=== PATIENT | male | born 1980 | race Hispanic/Latino ===

== ENCOUNTER 2021-10-03 21:02 | Emergency (ER) | payer OTHER, MEDICAID, SELFPAY ==
[2021-10-03 21:02] VITALS: BMI 20.7
[2021-10-03 21:03] VITALS: BP 138/89; PULSE 120; RESP 16; O2SAT 98
--- NOTE | 2021-10-03 21:12 | PC.NURSE ---
pt cooperative with care, arrives to ed with arms outstretched with fingers stiff but able to bend arms when needed, responds so some questions with appropriate answers speaks in a whisper voice when asked why he called the ambulance he only states suicidal asked if he had a plan he nodded and stated I'm going to bleed to when asked how he stated anyway I can, pt confused to where he is at
--- NOTE | 2021-10-03 21:18 | ED_ITS ---
HPI - Psych <Buddy Lindquist DO - Last Filed: 10/05/21 06:00> General Chief Complaint: Psychiatric Symptoms Stated Complaint: SI, disoriented, homeless Time Seen by Provider: 10/03/21 21:13 Source: patient and EMS Mode of arrival: EMS History of Present Illness HPI Narrative: A 41-year-old male. He is somewhat unable to provide much of any HPI. EMS stated that they were called because the patient was disoriented around a local business. Patient would not/could not provide any information. He told the EMS crew that he was suicidal. He told me that he has been suicidal for ?sometime ?when asked things got worried today he would not answer. When asked if he was seeing or hearing things he would not answer. Patient could not give a specific as to a plan as to how he would hurt himself. He denied alcohol or drug use. He stated that he did try to hurt himself this evening but once again could not provide any specifics about how. Patient was whispering during the entire interview. Patient disheveled. No signs of trauma. Related Data Home Medications Medication Instructions Recorded Confirmed Unobtainable 10/03/21 10/03/21 Allergies Allergy/AdvReac Type Severity Reaction Status Date / Time No Allergy Information Allergy Verified 10/03/21 21:16 Available Review of Systems <DO Fatuma Espinosa Last Filed: 10/05/21 06:00> Review of Systems Narrative: Very limited given his participation in the exam. Any information provided from the patient was given in the HPI and below. Cardiovascular Comments: Denies chest pain Psychiatric Psychiatric: Reports system reviewed and no additional complaints, except as documented and Reports as per HPI Patient History <Buddy Lindquist DO - Last Filed: 10/05/21 06:00> Medical History Unable to acculturate Social History marital status: unknown housing: homeless Substance Use Type: unknown Exam <DO Fatuma Espinosa Last Filed: 10/05/21 06:00> Initial Vital Signs Initial Vital Signs: Vital Signs Pulse Rate 120 H 10/03/21 21:03 Respiratory Rate 16 10/03/21 21:03 Blood Pressure 138/89 10/03/21 21:03 Pulse Oximetry 98 10/03/21 21:03 Const General: disheveled HENMT Head: normal to inspection and normocephalic Resp Effort & Inspection: normal respiratory effort Auscultation: clear to auscultation bilaterally Cardio Rate: regular rate Rhythm: regular rhythm GI Inspection: non-distended Palpation: soft Skin General: no rashes or lesions noted Neuro Gait: normal gait Other: Confused about where he is Would not answer what his name is Would not answer what year it is Does move all 4 extremities Extrem General: normal to inspection and no pedal edema Psych Other: Patient is disheveled Patient does not know where he is. Does not know how he got here. He does endorse being suicidal but would not specifically give a plan Patient is cooperative. <Rivka Pierre MD - Last Filed: 10/20/21 00:29> Initial Vital Signs Initial Vital Signs: Vital Signs Pulse Rate 120 H 10/03/21 21:03 Respiratory Rate 16 10/03/21 21:03 Blood Pressure 138/89 10/03/21 21:03 Pulse Oximetry 98 10/03/21 21:03 Scores <Buddy Lindquist DO - Last Filed: 10/05/21 06:00> GCS [place] coma scale eye opening: Spontaneous [place] coma scale verbal response: Confused [place] coma scale motor response: Obey commands [place] coma scale total score: 14 <Rivka Pierre MD - Last Filed: 10/20/21 00:29> GCS [place] coma scale total score: 14 Course <Buddy Lindquist DO - Last Filed: 10/05/21 06:00> Orders Ordered: Discontinued Medications Olanzapine (Olanzapine Odt 10 Mg Tab) 10 mg PO NOW ONE Stop: 10/04/21 12:09 Last Admin: 10/04/21 12:24 Dose: 10 mg Documented by: SERAFIN Olanzapine (Olanzapine Odt 10 Mg Tab) 10 mg PO BID [facility] Last Admin: 10/05/21 08:06 Dose: 10 mg Documented by: Admin: 10/04/21 20:38 Dose: 10 mg Documented by: SERAFIN Vital Signs Vital signs: Vital Signs - 8 hr 10/04/21 12:00 Temperature 98.2 F Pulse Rate 111 H Respiratory Rate 22 Blood Pressure 136/78 Pulse Oximetry 99 <Rivka Pierre MD - Last Filed: 10/20/21 00:29> Orders Ordered: Discontinued Medications Olanzapine (Olanzapine Odt 10 Mg Tab) 10 mg PO NOW ONE Stop: 10/04/21 12:09 Last Admin: 10/04/21 12:24 Dose: 10 mg Documented by: SERAFIN Olanzapine (Olanzapine Odt 10 Mg Tab) 10 mg PO BID [facility] Last Admin: 10/05/21 08:06 Dose: 10 mg Documented by: Admin: 10/04/21 20:38 Dose: 10 mg Documented by: SERAFIN Vital Signs Vital signs: Vital Signs - 8 hr 10/04/21 12:00 Temperature 98.2 F Pulse Rate 111 H Respiratory Rate 22 Blood Pressure 136/78 Pulse Oximetry 99 MDM - Psych <Buddy Lindquist DO - Last Filed: 10/05/21 06:00> Lab Data Result diagrams: 10/03/21 21:45 10/03/21 21:45 Labs: Lab Results 10/03/21 10/03/21 10/03/21 Range/Units 21:45 21:45 21:45 WBC 7.6 (4.5-11.0) X10^3/uL RBC 4.45 L (4.5-5.9) X10^6/uL Hgb 13.7 (13.5-17.5) g/dL Hct 38.7 L (41-53) % MCV 87.0 (80-100) fL MCH 30.7 (26-34) PG MCHC 35.3 (30-36) % RDW 13.7 (11.6-14.8) % Plt Count 317 (150-400) X10^3/uL Neut % (Auto) 73.9 (50-75) % Lymph % (Auto) 14.0 L (25-40) % [place] % (Auto) 11.5 (3-14) % Eos % (Auto) 0.1 L (2-4) % Baso % (Auto) 0.5 (0-2) % Neut # (Auto) 5600 (2590-8136) /uL Lymph # (Auto) 1100 (8273-1541) /uL [place] # (Auto) 900 (0-900) /uL Eos # (Auto) 0 (0-450) /uL Baso # (Auto) 0 (0-100) /uL Sodium 140 (137-145) mmol/L Potassium 3.3 L (3.4-5.1) mmol/L Chloride 102 (98-107) mmol/L Carbon Dioxide 30 (22-32) mmol/L BUN 11 (9-20) mg/dL Creatinine 0.87 (0.66-1.25) mg/dL Estimated GFR > 60 (>60) mL/min BUN/Creatinine Ratio 12.6 (6-22) Glucose 110 H (70-100) mg/dL Calcium 9.6 (8.4-10.2) mg/dL Total Bilirubin 0.6 (0.2-1.3) mg/dL AST 32 (17-59) IU/L ALT 23 (<50) IU/L Alkaline Phosphatase 42 (38-126) U/L Total Protein 7.9 (6.3-8.2) g/dL Albumin 4.7 (3.5-5.0) g/dL Globulin 3.2 (1.7-4.1) g/dL Albumin/Globulin Ratio 1.5 (1.0-2.8) TSH 0.482 (0.47-4.68) uIU/mL Urine RBC (0-5/HPF) Urine WBC (0-5/HPF) Urine Bacteria (None) Urine Sperm Ur Culture Indicated? Salicylates (<20) mg/dL U Opiates 300ng/mL cut (Negative) Ur Oxycodone Screen (Negative) Urine Methadone Screen (Negative) Acetaminophen (10-30) ug/mL Ur Barbiturates Screen (Negative) U Tricyclic Antidepress (Negative) Ur Phencyclidine Scrn (Negative) Ur Amphetamines Screen (Negative) U Methamphetamines Scrn (Negative) Ur MDMA Scrn (Ecstasy) (Negative) U Benzodiazepines Scrn (Negative) Urine Cocaine Screen (Negative) U Marijuana (THC) Screen (Negative) Ethyl Alcohol < 10 ( - 10) mg/dL SARS-CoV-2 (PCR) (Negative) 10/03/21 10/04/21 10/04/21 Range/Units 21:45 04:00 04:00 WBC (4.5-11.0) X10^3/uL RBC (4.5-5.9) X10^6/uL Hgb (13.5-17.5) g/dL Hct (41-53) % MCV (80-100) fL MCH (26-34) PG MCHC (30-36) % RDW (11.6-14.8) % Plt Count (150-400) X10^3/uL Neut % (Auto) (50-75) % Lymph % (Auto) (25-40) % [place] % (Auto) (3-14) % Eos % (Auto) (2-4) % Baso % (Auto) (0-2) % Neut # (Auto) (3725-0707) /uL Lymph # (Auto) (2217-6228) /uL [place] # (Auto) (0-900) /uL Eos # (Auto) (0-450) /uL Baso # (Auto) (0-100) /uL Sodium (137-145) mmol/L Potassium (3.4-5.1) mmol/L Chloride (98-107) mmol/L Carbon Dioxide (22-32) mmol/L BUN (9-20) mg/dL Creatinine (0.66-1.25) mg/dL Estimated GFR (>60) mL/min BUN/Creatinine Ratio (6-22) Glucose (70-100) mg/dL Calcium (8.4-10.2) mg/dL Total Bilirubin (0.2-1.3) mg/dL AST (17-59) IU/L ALT (<50) IU/L Alkaline Phosphatase (38-126) U/L Total Protein (6.3-8.2) g/dL Albumin (3.5-5.0) g/dL Globulin (1.7-4.1) g/dL Albumin/Globulin Ratio (1.0-2.8) TSH (0.47-4.68) uIU/mL Urine RBC None seen (0-5/HPF) Urine WBC None seen (0-5/HPF) Urine Bacteria None seen (None) Urine Sperm Present Ur Culture Indicated? Cult not indicated Salicylates < 1.0 (<20) mg/dL U Opiates 300ng/mL cut Negative (Negative) Ur Oxycodone Screen Negative (Negative) Urine Methadone Screen Negative (Negative) Acetaminophen < 10 (10-30) ug/mL Ur Barbiturates Screen Negative (Negative) U Tricyclic Antidepress Negative (Negative) Ur Phencyclidine Scrn Negative (Negative) Ur Amphetamines Screen Positive H (Negative) U Methamphetamines Scrn Positive H (Negative) Ur MDMA Scrn (Ecstasy) Negative (Negative) U Benzodiazepines Scrn Negative (Negative) Urine Cocaine Screen Negative (Negative) U Marijuana (THC) Screen Positive H (Negative) Ethyl Alcohol ( - 10) mg/dL SARS-CoV-2 (PCR) (Negative) 10/04/21 Range/Units 12:30 WBC (4.5-11.0) X10^3/uL RBC (4.5-5.9) X10^6/uL Hgb (13.5-17.5) g/dL Hct (41-53) % MCV (80-100) fL MCH (26-34) PG MCHC (30-36) % RDW (11.6-14.8) % Plt Count (150-400) X10^3/uL Neut % (Auto) (50-75) % Lymph % (Auto) (25-40) % [place] % (Auto) (3-14) % Eos % (Auto) (2-4) % Baso % (Auto) (0-2) % Neut # (Auto) (6600-1299) /uL Lymph # (Auto) (0336-2026) /uL [place] # (Auto) (0-900) /uL Eos # (Auto) (0-450) /uL Baso # (Auto) (0-100) /uL Sodium (137-145) mmol/L Potassium (3.4-5.1) mmol/L Chloride (98-107) mmol/L Carbon Dioxide (22-32) mmol/L BUN (9-20) mg/dL Creatinine (0.66-1.25) mg/dL Estimated GFR (>60) mL/min BUN/Creatinine Ratio (6-22) Glucose (70-100) mg/dL Calcium (8.4-10.2) mg/dL Total Bilirubin (0.2-1.3) mg/dL AST (17-59) IU/L ALT (<50) IU/L Alkaline Phosphatase (38-126) U/L Total Protein (6.3-8.2) g/dL Albumin (3.5-5.0) g/dL Globulin (1.7-4.1) g/dL Albumin/Globulin Ratio (1.0-2.8) TSH (0.47-4.68) uIU/mL Urine RBC (0-5/HPF) Urine WBC (0-5/HPF) Urine Bacteria (None) Urine Sperm Ur Culture Indicated? Salicylates (<20) mg/dL U Opiates 300ng/mL cut (Negative) Ur Oxycodone Screen (Negative) Urine Methadone Screen (Negative) Acetaminophen (10-30) ug/mL Ur Barbiturates Screen (Negative) U Tricyclic Antidepress (Negative) Ur Phencyclidine Scrn (Negative) Ur Amphetamines Screen (Negative) U Methamphetamines Scrn (Negative) Ur MDMA Scrn (Ecstasy) (Negative) U Benzodiazepines Scrn (Negative) Urine Cocaine Screen (Negative) U Marijuana (THC) Screen (Negative) Ethyl Alcohol ( - 10) mg/dL SARS-CoV-2 (PCR) Negative (Negative) Urine Dip Bedside Urine Glucose Negative Bedside Urine Bilirubin - Negative Bedside Urine Ketone - Negative Urine Specific [place] 1.025 Bedside Urine Occult Blood - Negative Bedside Urine pH 6.0 Bedside Urine Protein + 30 Bedside Urine Urobilinogen - Negative Bedside Urine Nitrite - Negative Bedside Urine Leukocytes - Negative Esterase ECG Data Attestation: I personally reviewed and interpreted this ECG as follows: Interpretation: Sinus rhythm Ventricular rate 104 Normal axis Normal QRS Normal QTC No ST T wave changes MDM Narrative Medical decision making narrative: Patient arrived in or worsening suicidal ideation however was unwilling/unable to provide much more information than this. Patient does have methamphetamine in his urine and I suspect that that is contributing to his presenting issues. Patient has been sleeping. Care turned over to Dr. Pierre to follow up and disposition. Social Work consult has been placed. noon: Patient is seen and evaluated after waking up this morning. He remains agitated. He is quite expressive but is not actually verbal. He clearly is asking for help in calming down. He is pacing somewhat he will get up from the bed and then stand facing into a corner. Does not appear to be acutely responding to internal stimuli but it is difficult to fully assess. He is cooperative and redirectable at this time. Review of medical records indicate that he does have a diagnosis of psychosis and 1 point has been on olanzapine 10 mg b.i.d.. Patient was admitted to [facility] on 09/02-09/16 with similar presentation as he has today. Extremely paranoid, urine tox is positive for methamphetamine and opiates. Today methamphetamines only are noted in his urine tox screen. There is a report in notes from [facility] that he had multiple psychiatric admissions in [facility] prior to moving to [place]. With that inpatient stay he was started on Zyprexa twice a day and showed continued improvement. The impression at that time was unspecified psychosis verses metha mphetamine induced psychosis verses schizophrenia. He was instructed to follow- up with outpatient providers. It does not seem that he was able to follow through with that plan. 4:45 patient is medically clear at this time. Care is reviewed with nursing home social worker who has interviewed the patient. At this time I believe DCR involvement is going to be appropriate. I do not think that he is a good cris voluntary admission and I do think that he have acute psychosis that needs to be more completely addressed. 610 talked to DCR. Care is turned over to DR Lexa Lindquist: Wound care of patient. Reviewed prior shift events. Patient remains medically cleared. Was evaluated by DCR with decision to involuntarily detained patient. Placement made by DCR at [facility]. He is able to a rrive later this morning. Patient has been calm and sleeping overnight. Patient is currently stable for transport. <Rivka Pierre MD - Last Filed: 10/20/21 00:29> Lab Data Labs: Lab Results 10/03/21 10/03/21 10/03/21 Range/Units 21:45 21:45 21:45 WBC 7.6 (4.5-11.0) X10^3/uL RBC 4.45 L (4.5-5.9) X10^6/uL Hgb 13.7 (13.5-17.5) g/dL Hct 38.7 L (41-53) % MCV 87.0 (80-100) fL MCH 30.7 (26-34) PG MCHC 35.3 (30-36) % RDW 13.7 (11.6-14.8) % Plt Count 317 (150-400) X10^3/uL Neut % (Auto) 73.9 (50-75) % Lymph % (Auto) 14.0 L (25-40) % [place] % (Auto) 11.5 (3-14) % Eos % (Auto) 0.1 L (2-4) % Baso % (Auto) 0.5 (0-2) % Neut # (Auto) 5600 (3680-6048) /uL Lymph # (Auto) 1100 (8723-1405) /uL [place] # (Auto) 900 (0-900) /uL Eos # (Auto) 0 (0-450) /uL Baso # (Auto) 0 (0-100) /uL Sodium 140 (137-145) mmol/L Potassium 3.3 L (3.4-5.1) mmol/L Chloride 102 (98-107) mmol/L Carbon Dioxide 30 (22-32) mmol/L BUN 11 (9-20) mg/dL Creatinine 0.87 (0.66-1.25) mg/dL Estimated GFR > 60 (>60) mL/min BUN/Creatinine Ratio 12.6 (6-22) Glucose 110 H (70-100) mg/dL Calcium 9.6 (8.4-10.2) mg/dL Total Bilirubin 0.6 (0.2-1.3) mg/dL AST 32 (17-59) IU/L ALT 23 (<50) IU/L Alkaline Phosphatase 42 (38-126) U/L Total Protein 7.9 (6.3-8.2) g/dL Albumin 4.7 (3.5-5.0) g/dL Globulin 3.2 (1.7-4.1) g/dL Albumin/Globulin Ratio 1.5 (1.0-2.8) TSH 0.482 (0.47-4.68) uIU/mL Urine RBC (0-5/HPF) Urine WBC (0-5/HPF) Urine Bacteria (None) Urine Sperm Ur Culture Indicated? Salicylates (<20) mg/dL U Opiates 300ng/mL cut (Negative) Ur Oxycodone Screen (Negative) Urine Methadone Screen (Negative) Acetaminophen (10-30) ug/mL Ur Barbiturates Screen (Negative) U Tricyclic Antidepress (Negative) Ur Phencyclidine Scrn (Negative) Ur Amphetamines Screen (Negative) U Methamphetamines Scrn (Negative) Ur MDMA Scrn (Ecstasy) (Negative) U Benzodiazepines Scrn (Negative) Urine Cocaine Screen (Negative) U Marijuana (THC) Screen (Negative) Ethyl Alcohol < 10 ( - 10) mg/dL SARS-CoV-2 (PCR) (Negative) 10/03/21 10/04/21 10/04/21 Range/Units 21:45 04:00 04:00 WBC (4.5-11.0) X10^3/uL RBC (4.5-5.9) X10^6/uL Hgb (13.5-17.5) g/dL Hct (41-53) % MCV (80-100) fL MCH (26-34) PG MCHC (30-36) % RDW (11.6-14.8) % Plt Count (150-400) X10^3/uL Neut % (Auto) (50-75) % Lymph % (Auto) (25-40) % [place] % (Auto) (3-14) % Eos % (Auto) (2-4) % Baso % (Auto) (0-2) % Neut # (Auto) (8568-5278) /uL Lymph # (Auto) (3805-1443) /uL [place] # (Auto) (0-900) /uL Eos # (Auto) (0-450) /uL Baso # (Auto) (0-100) /uL Sodium (137-145) mmol/L Potassium (3.4-5.1) mmol/L Chloride (98-107) mmol/L Carbon Dioxide (22-32) mmol/L BUN (9-20) mg/dL Creatinine (0.66-1.25) mg/dL Estimated GFR (>60) mL/min BUN/Creatinine Ratio (6-22) Glucose (70-100) mg/dL Calcium (8.4-10.2) mg/dL Total Bilirubin (0.2-1.3) mg/dL AST (17-59) IU/L ALT (<50) IU/L Alkaline Phosphatase (38-126) U/L Total Protein (6.3-8.2) g/dL Albumin (3.5-5.0) g/dL Globulin (1.7-4.1) g/dL Albumin/Globulin Ratio (1.0-2.8) TSH (0.47-4.68) uIU/mL Urine RBC None seen (0-5/HPF) Urine WBC None seen (0-5/HPF) Urine Bacteria None seen (None) Urine Sperm Present Ur Culture Indicated? Cult not indicated Salicylates < 1.0 (<20) mg/dL U Opiates 300ng/mL cut Negative (Negative) Ur Oxycodone Screen Negative (Negative) Urine Methadone Screen Negative (Negative) Acetaminophen < 10 (10-30) ug/mL Ur Barbiturates Screen Negative (Negative) U Tricyclic Antidepress Negative (Negative) Ur Phencyclidine Scrn Negative (Negative) Ur Amphetamines Screen Positive H (Negative) U Methamphetamines Scrn Positive H (Negative) Ur MDMA Scrn (Ecstasy) Negative (Negative) U Benzodiazepines Scrn Negative (Negative) Urine Cocaine Screen Negative (Negative) U Marijuana (THC) Screen Positive H (Negative) Ethyl Alcohol ( - 10) mg/dL SARS-CoV-2 (PCR) (Negative) 10/04/21 Range/Units 12:30 WBC (4.5-11.0) X10^3/uL RBC (4.5-5.9) X10^6/uL Hgb (13.5-17.5) g/dL Hct (41-53) % MCV (80-100) fL MCH (26-34) PG MCHC (30-36) % RDW (11.6-14.8) % Plt Count (150-400) X10^3/uL Neut % (Auto) (50-75) % Lymph % (Auto) (25-40) % [place] % (Auto) (3-14) % Eos % (Auto) (2-4) % Baso % (Auto) (0-2) % Neut # (Auto) (0654-8237) /uL Lymph # (Auto) (5415-2499) /uL [place] # (Auto) (0-900) /uL Eos # (Auto) (0-450) /uL Baso # (Auto) (0-100) /uL Sodium (137-145) mmol/L Potassium (3.4-5.1) mmol/L Chloride (98-107) mmol/L Carbon Dioxide (22-32) mmol/L BUN (9-20) mg/dL Creatinine (0.66-1.25) mg/dL Estimated GFR (>60) mL/min BUN/Creatinine Ratio (6-22) Glucose (70-100) mg/dL Calcium (8.4-10.2) mg/dL Total Bilirubin (0.2-1.3) mg/dL AST (17-59) IU/L ALT (<50) IU/L Alkaline Phosphatase (38-126) U/L Total Protein (6.3-8.2) g/dL Albumin (3.5-5.0) g/dL Globulin (1.7-4.1) g/dL Albumin/Globulin Ratio (1.0-2.8) TSH (0.47-4.68) uIU/mL Urine RBC (0-5/HPF) Urine WBC (0-5/HPF) Urine Bacteria (None) Urine Sperm Ur Culture Indicated? Salicylates (<20) mg/dL U Opiates 300ng/mL cut (Negative) Ur Oxycodone Screen (Negative) Urine Methadone Screen (Negative) Acetaminophen (10-30) ug/mL Ur Barbiturates Screen (Negative) U Tricyclic Antidepress (Negative) Ur Phencyclidine Scrn (Negative) Ur Amphetamines Screen (Negative) U Methamphetamines Scrn (Negative) Ur MDMA Scrn (Ecstasy) (Negative) U Benzodiazepines Scrn (Negative) Urine Cocaine Screen (Negative) U Marijuana (THC) Screen (Negative) Ethyl Alcohol ( - 10) mg/dL SARS-CoV-2 (PCR) Negative (Negative) Urine Dip Bedside Urine Glucose Negative Bedside Urine Bilirubin - Negative Bedside Urine Ketone - Negative Urine Specific [place] 1.025 Bedside Urine Occult Blood - Negative Bedside Urine pH 6.0 Bedside Urine Protein + 30 Bedside Urine Urobilinogen - Negative Bedside Urine Nitrite - Negative Bedside Urine Leukocytes - Negative Esterase MDM Narrative Medical decision making narrative: Patient arrived in or worsening suicidal ideation however was unwilling/unable to provide much more information than this. Patient does have methamphetamine in his urine and I suspect that that is contributing to his presenting issues. Patient has been sleeping. Care turned over to Dr. Pierre to follow up and disposition. Social Work consult has been placed. noon: Patient is seen and evaluated after waking up this morning. He remains agitated. He is quite expressive but is not actually verbal. He clearly is asking for help in calming down. He is pacing somewhat he will get up from the bed and then stand facing into a corner. Does not appear to be acutely responding to internal stimuli but it is difficult to fully assess. He is cooperative and redirectable at this time. Review of medical records indicate that he does have a diagnosis of psychosis and 1 point has been on olanzapine 10 mg b.i.d.. Patient was admitted to [facility] on 09/02-09/16 with similar presentation as he has today. Extremely paranoid, urine tox is positive for methamphetamine and opiates. Today methamphetamines only are noted in his urine tox screen. There is a report in notes from [facility] that he had multiple psychiatric admissions in [facility] prior to moving to [place]. With that inpatient stay he was started on Zyprexa twice a day and showed continued imp rovement. The impression at that time was unspecified psychosis verses methamphetamine induced psychosis verses schizophrenia. He was instructed to follow-up with outpatient providers. It does not seem that he was able to follow through with that plan. 4:45 patient is medically clear at this time. Care is reviewed with nursing home social worker who has interviewed the patient. At this time I believe DCR involvement is going to be appropriate. I do not think that he is a good cris voluntary admission and I do think that he have acute psychosis that needs to be more completely addressed. 610 talked to DCR. Care is turned over to DR Lindquist Discharge Plan Departure Patient Disposition: Xfer Psychiatric Hosp Clinical Impression: Acute psychosis, Methamphetamine use
[2021-10-03 21:56] LABS: Add Manual Diff / Slide Review NO; Basophils Absolute Auto 0 /uL (0-100); Basophils Percent Auto 0.5 % (0-2); Eosinophils Absolute Auto 0 /uL (0-450); Eosinophils Percent Auto 0.1 % (2-4); Hematocrit 38.7 % (41-53); Hemoglobin 13.7 g/dL (13.5-17.5); Lymphocytes Absolute Auto 1100 /uL (1100-4500); Mean Corpuscular HGB Conc 35.3 % (30-36); Mean Corpuscular Hemoglobin 30.7 PG (26-34); Monocytes Absolute Auto 900 /uL (0-900); Monocytes Percent Auto 11.5 % (3-14); Neutrophils Absolute Auto 5600 /uL (1500-7000); Neutrophils Percent Auto 73.9 % (50-75); Platelet Count 317 X10^3/uL (150-400); Red Blood Cell Count 4.45 X10^6/uL (4.5-5.9); Red Cell Distribution Width 13.7 % (11.6-14.8); White Blood Cell Count 7.6 X10^3/uL (4.5-11.0)
[2021-10-03 22:07] LABS: Alanine Aminotransferase 23 IU/L (<50); Albumin 4.7 g/dL (3.5-5.0); Albumin Globulin Ratio 1.5 (1.0-2.8); Alkaline Phosphatase 42 U/L (38-126); Aspartate Aminotransferase 32 IU/L (17-59); BUN Creatinine Ratio 12.6 (6-22); Bilirubin Total 0.6 mg/dL (0.2-1.3); Blood Urea Nitrogen 11 mg/dL (9-20); Calcium 9.6 mg/dL (8.4-10.2); Carbon Dioxide 30 mmol/L (22-32); Chloride 102 mmol/L (98-107); Estimated Glomerular Filt Rate > 60 mL/min (>60); Ethanol (ETOH) < 10 mg/dL; Globulin 3.2 g/dL (1.7-4.1); Glucose 110 mg/dL (70-100); HEMOLYSIS < 15 (0-50); Potassium 3.3 mmol/L (3.4-5.1); Sodium 140 mmol/L (137-145); Total Protein 7.9 g/dL (6.3-8.2)
[2021-10-03 22:16] LABS: Acetaminophen < 10 ug/mL (10-30); Salicylate < 1.0 mg/dL (<20)
[2021-10-03 22:48] LABS: Thyroid Stimulating Hormone 0.482 uIU/mL (0.47-4.68)
--- NOTE | 2021-10-04 03:45 | PC.NURSE ---
pt off of the stretcher asking where he was and how did he get there, asked for the bathroom and was given a urinal, pt would not take the urinal and crawled back on the stretcher, pt restless
--- NOTE | 2021-10-04 04:00 | PC.NURSE ---
pt used urinal then returned to stretcher, continues to be restless and mumble answers to questions
[2021-10-04 04:19] LABS: UR Morphine/Opiate cutoff 300 Negative (Negative); Ur Creatinine 20 (Normal); Urine Amphetamines Positive (Negative); Urine Barbiturates Negative (Negative); Urine Benzodiazepines Negative (Negative); Urine Cocaine Negative (Negative); Urine MDMA Negative (Negative); Urine Methadone Negative (Negative); Urine Methamphetamines Positive (Negative); Urine Oxycodone Negative (Negative); Urine Phencyclidine Negative (Negative); Urine Tetrahydrocannabinol Positive (Negative); Urine Tricyclic Antidepressant Negative (Negative); Urine pH 5.5 (Normal)
--- NOTE | 2021-10-04 04:30 | PC.NURSE ---
pt becoming increasingly restless
[2021-10-04 04:38] LABS: Bacteria Urine None Seen; RBC Urine None Seen (0-5/HPF); WBC Urine None Seen (0-5/HPF)
[2021-10-04 04:39] LABS: Culture Indicated Urine Cult Not Indicated; Sperm Urine Present
--- NOTE | 2021-10-04 06:15 | PC.NURSE ---
pt off of the stretcher standing at the door, standing stiff will not make eye contact, instructed to return to the stretcher and pt complied
--- NOTE | 2021-10-04 08:11 | PC.NURSE ---
pt refused to eat his breakfast. sitting in corner of room. apple juice and water given to patient
--- NOTE | 2021-10-04 10:34 | PC.NURSE ---
Pt has spastic body movements but able to ambulate well.
[2021-10-04 12:00] VITALS: BP 136/78; PULSE 111; RESP 22; TEMP 36.8; O2SAT 99
[2021-10-04] MEDS: OLANZapine ODT 10 MG TAB PO ×2 (12:24→20:38)
[2021-10-04 12:59] LABS: COVID19 -Nasal RAPID Negative (Negative)
--- NOTE | 2021-10-04 15:07 | PC.NURSE ---
Patient appears to be resting comfortably at this time. Is visualized by this RN in his room.
--- NOTE | 2021-10-04 16:17 | PC.NURSE ---
pt has been sleeping
--- NOTE | 2021-10-04 17:33 | CM.SWNOTE ---
ED Social Work Note: Patient is 41yo male who presented to ED in altered status via EMS after being found in community behaving abnormally. Patient remained in ED setting for 19+ hours to metabolize meth intoxication prior to assessment commencing. Patient was medically cleared by attending physician for assessment and further evaluation by DCR. Patient is A/O only to self with minimal awareness of being in hospital setting but unaware of his geographical location or how he got to ED or why he is in ED. Patient does report SI with plan to knife self and states he does own a knife. Patient denies HI and states he doesn't remember or doesn't know if he has A/V hallucinations. Patient is poor historian with thought blocking observed. Patient is psychomotor agitated with writhing and twitching observed. Patient is cooperative with requests by nursing staff and has not required restraints. Patient refused meals I'm not hungry but did eat some crackers and drank some juice. Patient is disheveled, poor hygiene, malodorous. Patient' speech is whispering, repetitive, pressured/rapid and anxious. Patient made poor eye contact spending most of assessment under sheet or with eyes squinted and head turned down into pillow. Patient made grimace facial expressions during assessment but denied any physical pain. Patient responded I don't know and I don't remember to most inquiries. Patient stated several times he is alone, sleeps on floors, and suicide, suicide! Patient was unable to inform social services analyst of what medications he was prescribed from his last inpatient psychiatric stay. Patient did state he hasn't taken the medications. Patient is gravely disabled at the time of this assessment and unable to coherently articulate his needs/wants and would be unable to keep self safe in community or get his basic needs met. out of school hours care worker and CEMENT TESTER ASSISTANT conferred and agreed further evaluation by DCR is warranted due to grave disability and poor good cris candidate for inpatient treatment for which patient meets criteria. Joe Corona [facility] CEMENT TESTER ASSISTANT - Aircrewman Assessment CEMENT TESTER ASSISTANT - Aircrewman Assessment Start: 10/04/21 16:58 Freq: Status: Active Protocol: Document 10/04/21 16:58 ANABELL (Rec: 10/04/21 17:11 ANABELL [id number]) CEMENT TESTER ASSISTANT/Aircrewman Assessment Time Spent with Patient Start date 10/04/21 Visit Start Time 16:30 End date 10/04/21 Visit End Time 17:00 Total time Care Management spent on 30 patient visit-in minutes Mental Health Screening Include Onset, Duration, Intensity Presenting Problem Patient presented to ED for mental health assessment. Patient remained in ED setting overnight for evaluation to allow for meth intoxication to metabolize. Patient was medically cleared for assessment by attending physician. Precipitating Event(s) Patient was found to be in altered mental state outside of a local business and brought to ED after making statements of SI. Patient Strengths Patient appears to want help; it is difficult to gather information from patient as he has trouble forming words or responding to assessment questions. Current Behavioral Health Provider(s) unknown, presumed none Include Facility, Provider, Ph. # Psych. Hx Mental Health and Chemical [facility] inpatient from 09/02-09/16/21 Dependency ; other history unknown. Unspecified psychosis prior diagnosis is noted by attending physician. Family Hx of Behavioral Abuse unknown Psychiatric Hospitalizations (date(s)/ 09/02-09/16/21 at [facility]; otherwise location) unknown Psychosocial information & Support patient made several Systems statements of being alone; unknown supports in community School/Work unknown Substance Abuse Screening Include Onset, Duration, Intensity Presenting Problem patient's utox was positive for amphetamines, methamphetamine, THC. ETOH was 0.00. Patient has been in ED setting 20 hours to metabolize . Legal Concerns Legal Matters - Outstanding Issues unknown Mental Status Orientation (Person/Place/Time) patient unable to state ; patient aware he is in hospital but cannot state what town or state he is in, not oriented to date/time. Patient is able to respond to his name but cannot inform CEMENT TESTER ASSISTANT of his name when asked. Stated Mood confused, scared Affect (Congruent with Mood?) anxious, agitated but cooperative Thought Content - Specify/Describe patient unable to participate Obsessions, Delusions, Hallucinations in assessment enough to assess thought content other than suicide being repeated multiple times Thought Processes (Tvpscet-Mzagtwyi-Hrds Patient's thought process is Cckmmclm-Mwtdoiub-Pkkiscdjup- disorganized with thought Gbasfdcaelfajp-Cddlsjv-Vyututyuopwp- blocking observed. Patient is Thought Blocking) confused or otherwise unable to verbally participate in assmt. Speech (Nzwteg-Ovja-Szvhucs-Rapid-Soft- whispered, rapid/pressured, Loud-Pressured) mumbled, repetitive Motor (Gqfaou-Ikhvtpebd-Wtdb-Other) agitated with twitching and writhing Insight (Dkhh-Enlp-Avul/Limited) poor Judgement (Gfjn-Fovy-Vonx/Limited) poor Impulse Control (Adequate-Impaired) impaired Memory (Extxhxuaw-Pxecdn-Yeavhx, impaired; patient reporting he Impaired-Intact) cannot remember how he got to hospital, how he got to [place] state, or why he is at the hospital. Concentration (Intact-Impaired) impaired Attention (Intact-Impaired) impaired Behavior (Appropriate-Inappropriate) cooperative Risk Assessment Suicidal Ideation (Plan) Yes Homicidal Ideation (Plan) No Comment Patient reported he has a knife and he would knife myself when asked about a plan for self harm/suicide Intervention Intervention CEMENT TESTER ASSISTANT and attending conferred and believe patient is gravely disabled and unable to meet his own basic needs or keep self safe in community so warrants a DCR evaluation. Plan RA Plan DCR dispatch requested from [facility]. Awaiting DCR disposition at this time.
--- NOTE | 2021-10-04 17:45 | PC.NURSE ---
Patient declined meal tray.
--- NOTE | 2021-10-04 19:08 | PC.NURSE ---
talked to unruly dobbins
--- NOTE | 2021-10-04 19:08 | PC.NURSE ---
Pt assisted with ipad and spoke to Chu with DCR. Pt ate granola bar and drank apple juice, offered other parts of meal and states I don't want to eat, did not wish elaborate.
[2021-10-04 19:38] VITALS: BP 123/75; PULSE 92; RESP 18; O2SAT 99
--- NOTE | 2021-10-04 20:24 | PC.NURSE ---
Pt provided a new pair of pants to change into per request. Also consumed another granola bar and cup of water.
--- NOTE | 2021-10-04 21:02 | CM.SWNOTE ---
Patient was detained, has been served his [facility] docs, is pending transfer to [facility] tomorrow AM after 0900. Attending and assigned nurse notified. Joe KAUFMAN
[2021-10-05] MEDS: OLANZapine ODT 10 MG TAB PO (08:06)
[2021-10-05 08:32] VITALS: BP 105/56; PULSE 70; O2SAT 99
== END 2021-10-05 08:45 ==
PROVIDERS: Emergency Medicine; Emergency Provider Emergency Medicine
DX: F23 Brief psychotic disorder (principal); F15.90 Other stimulant use, unspecified, uncomplicated; Z59.00 Homelessness unspecified; Z20.822 Contact with and (suspected) exposure to COVID-19
CPT/HCPCS: 36415; 80053; 80305; 80320; 80329; 81003; 81015; 84443; 85025; 87635; 93005; 99284; C9803; G0480